=== PATIENT | male | born 1985 | race Asian ===

== ENCOUNTER 2019-11-23 13:14 | Emergency (ER) | payer OTHER ==
[~2019-11-23] VITALS: Ht 172.7 cm; Wt 94.0 kg
[2019-11-23] MEDS ORDERED: GLUCAGON,HUMAN RECOMBINANT 1MG/VIAL IV ONE (14:30)
[2019-11-23 14:45] LABS: BASOPHILS % 1.2 % (0.0-2.0); EOSINOPHILS % 4.8 % (0.0-5.0); HEMOGLOBIN. 15.4 g/dL (14.0-18.0); LYMPHOCYTES % 37.7 % (20.0-50.0); MEAN CORPUSCULAR HEMOGLOBIN 29.1 pg (28.0-32.0); MEAN CORPUSCULAR VOLUME 84.9 fL (80.0-94.0); MONOCYTES % 6.8 % (2.0-8.0); NEUTROPHILS % 49.5 % (40.0-76.0); PLATELET 229 x1000/uL (130-400); RED CELL DISTRIBUTION WIDTH 13.7 % (11.6-14.6)
[2019-11-23 14:50] LABS: CHLORIDE 101 mEq/L (98-107)
[2019-11-23 14:52] LABS: INR 1.1; PROTHROMBIN TIME 11.6 sec (9.6-11.0)
[2019-11-23 18:16] VITALS: BP 133/97
== END 2019-11-23 18:28 | disposition short-term general hospital (02) ==
LOC: ER 13:14
DX: T18.128A Food in esophagus causing other injury, initial encounter (principal); X58.XXXA Exposure to other specified factors, initial encounter; E03.9 Hypothyroidism, unspecified
CPT/HCPCS: 36415; 70360; 71045; 80053; 85025; 85610; 96374; 99285; J1610